=== PATIENT | male | born 1975 | race Caucasian/White ===

== ENCOUNTER 2022-05-10 11:03 | Day surgery (SDC) | payer BC ==
[2022-05-08 15:21] VITALS: BMI 23.1
[2022-05-10] MEDS ORDERED: Bupivacaine PF 0.5% 30 ML VIAL ONE (12:04)
[2022-05-10] MEDS ORDERED: Neomycin-Polymyxin 1 ML AMP ONE (12:04)
[2022-05-10] MEDS ORDERED: CEFAZOLIN 2 GM VIAL ONE (12:14)
[2022-05-10] MEDS ORDERED: Midazolam HCl 2 mg/2 ml Vial ONE (12:26)
[2022-05-10] MEDS ORDERED: PROPOFOL 20 ML ONE (12:26)
[2022-05-10] MEDS ORDERED: Fentanyl 100 MCG/2 ML VIAL ONE (12:26)
[2022-05-10] MEDS ORDERED: Ondansetron PF 4 MG/2 ML Vial ONE (12:27)
[2022-05-10] MEDS ORDERED: Lidocaine 1% PF 5 ML VIAL ONE (12:27)
== END 2022-05-10 15:10 | disposition home or self-care (01) ==
LOC: CSHSDC 11:03
PROVIDERS: ATTEND Podiatrist Foot & Ankle Surgery
PROC: 0SSF05Z Reposition Right Ankle Joint with External Fixation Device, Open Approach (ICD-10-PCS; principal; 2022-05-10)
DX: M20.21 Hallux rigidus, right foot (principal); Z88.8 Allergy status to other drugs, medicaments and biological substances
CPT/HCPCS: C1776; J2250; J2405; J2704; J3010; S0020